=== PATIENT | female | born 1995 | race Caucasian/White ===

== ENCOUNTER 2016-07-28 12:09 | Day surgery (SDC) | payer OTHER ==
[~2016-07-28] VITALS: Ht 162.6 cm; Wt 88.6 kg
[2016-07-28 12:39] VITALS: Ht 162.6 cm; Wt 88.6 kg
[2016-07-28] MEDS ORDERED: no home meds (12:47)
[2016-07-28] MEDS ORDERED: LIDOCAINE 4% SOLUTION 50 ML BTL ONE (13:42)
[2016-07-28] MEDS ORDERED: MIDAZOLAM 1 MG/ML 2 ML INJ ONE ×2 (14:11)
[2016-07-28] MEDS ORDERED: FENTAnyl 50 MCG/ML VIAL ONE (14:11)
[2016-07-28 14:28] VITALS: BP 147/80; RESP 20
--- NOTE | 2016-07-29 05:51 | GILP ---
DATE OF PROCEDURE: 07/28/2016 PREOPERATIVE DIAGNOSIS: Epigastric pain, abdominal pain, suspected organic disease. PROCEDURE DONE: Esophagogastroduodenoscopy and biopsy. POSTOPERATIVE DIAGNOSIS: Normal upper endoscopy. DESCRIPTION OF PROCEDURE: The patient was put in left lateral decubitus after obtaining informed co nsent and was sedated after anesthetizing the posterior pharynx with 4% Xylocaine. She received 4 m g of IV Versed and 100 mcg of fentanyl. Very carefully, I advanced the Olympus video upper endoscope into the esophagus, stomach, and duoden um. Entire examination was normal. The esophagus was examined from cricopharyngeus to the GE junct ion. By retroflexion, also visualized the fundus, body, antrum, and pyloric channel. All of these were normal. The duodenal bulb was easily entered. Duodenal bulb, postbulbar area, and second part of the duodenum normal. Then, the scope was slowly withdrawn. The patient had no complication aft er biopsies of the stomach randomly done to rule out any H. pylori. After removal of scope, the pat ient had no complication. PLAN: Will be to follow up as outpatient. Advise her to have upper abdominal ultrasound and see if any abnormalities can be picked up in here. Dictated By: ZUNILDA KUMAR Conf#: [id number] DID#: [id number] CC: Herb Marin MD;*End*
== END 2016-07-28 14:40 | disposition home or self-care (01) ==
LOC: GIL 12:09
PROVIDERS: ATTEND Internal Medicine
DX: R10.13 Epigastric pain (principal)
CPT/HCPCS: 43239; 84703; 88305; 88312; J2250; J3010; Z7610

== ENCOUNTER 2017-04-14 09:15 | Emergency (ER) | END 2017-04-14 12:40 | disposition home or self-care (01) ==